=== PATIENT | female | born 1965 | race Caucasian/White ===

== ENCOUNTER 2023-01-01 11:09 | Day surgery (SDC) | payer BC, MEDICAID ==
[~2023-01-01] VITALS: Ht 167.6 cm; Wt 107.9 kg
[2023-01-01 11:25] VITALS: BP 152/86
[2023-01-01] MEDS ORDERED: LIDOcaine 1%/PF 5ML 10 MG/ML VIAL SQ ONE (11:40)
[2023-01-01 12:43] VITALS: BP 152/86
[2023-01-01 13:00] VITALS: BP 148/82
== END 2023-01-01 13:15 | disposition home or self-care (01) ==
LOC: SSTAY O 11:09
PROVIDERS: ATTEND Nurse Practitioner Family
DX: E04.2 Nontoxic multinodular goiter (principal); D34 Benign neoplasm of thyroid gland
CPT/HCPCS: 10005; 10006